=== PATIENT | female | born 1985 | race Asian ===

== ENCOUNTER 2022-04-07 19:08 | Emergency (ER) | payer BC ==
[~2022-04-07] VITALS: Ht 162.6 cm; Wt 72.6 kg
--- NOTE | 2022-04-07 19:50 | NUR ---
TO ER BED 11. [employer] [facility] FOR SUICIDAL W/ PLAN TO CUT SELF. PT CALLED 911 HERSELF. PLACED ON 5150 BY [employer]. PT IS ALERT AND ORIENTED. RR EVEN AND NON LABORED. CONNECTED TO POX AND HEART MONITOR. BELONGING OBTAINED AND SECURED IN LOCKER. SITTER WITHIN SIGHT.
--- NOTE | 2022-04-07 19:57 | NUR ---
COVID SWAB COLLECTED
--- NOTE | 2022-04-07 20:08 | NUR ---
LAB AT BEDSIDE
[2022-04-07 20:28] LABS: BASOPHILS % (AUTO) 0.3 % (0.0-2.0); EOSINOPHILS % (AUTO) 0.8 % (0.0-6.0); HEMATOCRIT 40 % (33-45); HEMOGLOBIN 13.1 g/dL (11.5-14.8); LYMPHOCYTES # (AUTO) 1.7 K/uL (0.8-4.8); LYMPHOCYTES % (AUTO) 14.6 % (20.0-44.0); MEAN CORPUSCULAR HGB CONC 33 g/dl (31.0-36.0); MEAN CORPUSCULAR VOLUME 94 fL (82-100); MONOCYTES # (AUTO) 0.7 K/uL (0.1-1.30); MONOCYTES % (AUTO) 5.9 % (2.0-12.0); NEUTROPHILS # (AUTO) 9.1 K/uL (1.8-8.9); NEUTROPHILS % (AUTO) 78.4 % (43.0-81.0); PLATELET COUNT (AUTO) 330 K/uL (150-450); RED BLOOD CELL COUNT(AUTO) 4.27 MIL/uL (4.0-5.2); WHITE BLOOD COUNT (AUTO) 11.7 K/uL (4.3-11.0)
[2022-04-07 20:57] LABS: CALCIUM, SERUM 8.1 mg/dL (8.5-10.1); CARBON DIOXIDE 22 mmol/L (21-32); CHLORIDE 103 mmol/L (98-107); CREATININE 0.5 mg/dL (0.6-1.3); GLUCOSE 102 mg/dL (74-106); POTASSIUM 3.7 mmol/L (3.5-5.1); SODIUM SERUM 137 mmol/L (136-145); UREA NITROGEN, BLOOD 4 mg/dL (7-18)
[2022-04-07 21:05] LABS: BILIRUBIN,URINE NEGATIVE (NEGATIVE); COLOR,URINE YELLOW (YELLOW); LEUKOCYTE ESTERASE ,URINE NEGATIVE (NEGATIVE); NITRITE, URINE NEGATIVE (NEGATIVE); PH,URINE 6.5 (5.0-8.0); PROTEIN,URINE NEGATIVE (NEGATIVE); UGLUCOSE NEGATIVE (NEGATIVE); UROBILINOGEN,URINE 0.2 EU/dL (0.2)
[2022-04-07 21:05] LABS: ALANINE AMINOTRANSFERASE 38 U/L (12-78); ALKALINE PHOSPHATASE 57 U/L (46-116); ASPARTATE AMINOTRANSFERASE 25 U/L (15-37); BILIRUBIN,DIRECT 0.1 mg/dL (0.0-0.2); BILIRUBIN,TOTAL 0.3 mg/dL (0.2-1.0); TOTAL PROTEIN, SERUM 7.3 g/dL (6.4-8.2)
--- NOTE | 2022-04-07 21:15 | NUR ---
SPOKE WITH MELL SANTOS. WILL FAX FACESHEET AND CLINICALS TO [phone]
[2022-04-07 21:40] LABS: ALCOHOL, BLOOD < 3 mg/dL (0-0)
[2022-04-08 02:51] VITALS: BP 130/80
--- NOTE | 2022-04-08 02:53 | NUR ---
S/W JOSE FROM [facility], ACCEPTING PT BUT BED INFO AT THIS TIME. SHE WILL CALL BACK
--- NOTE | 2022-04-08 03:19 | NUR ---
ROOM [address] ACCEPTING DR SHOOK
--- NOTE | 2022-04-08 03:25 | NUR ---
FOR REPORT CALL [phone]
--- NOTE | 2022-04-08 04:03 | NUR ---
REPORT GIVEN TO [facility] FOR TRANSPORTATION
--- NOTE | 2022-04-08 04:03 | NUR ---
REPORT GIVEN TO KORINA COPELAND AT [facility]
--- NOTE | 2022-04-12 11:05 | NUR ---
[phone] NUMBER DAVY ASHA LOTT CALLED ABOUT PT BELONGINGS
== END 2022-04-08 05:29 ==
LOC: ER 21:07
DX: R45.851 Suicidal ideations (principal); D72.829 Elevated white blood cell count, unspecified; F32.9 Major depressive disorder, single episode, unspecified; Z20.822 Contact with and (suspected) exposure to COVID-19
CPT/HCPCS: 99285; 85025; 80048; 80076; 84703; 81003; 36415; 87426; 80143; 80320; 80307; C9803; G0480